=== PATIENT | male | born 1960 | race African-American/Black ===

== ENCOUNTER → 2016-10-08 07:32 | Outpatient (CLI) | payer MEDICAID | LOC: D.MRI 07:32 | DX: M50.10 Cervical disc disorder with radiculopathy, unspecified cervical region (principal); R20.0 Anesthesia of skin; R53.1 Weakness ==

== ENCOUNTER 2017-02-11 08:44 | Emergency (ER) | payer MEDICAID | END 2017-02-11 09:44 | disposition home or self-care (01) | LOC: D.ER 08:44 | DX: M25.512 Pain in left shoulder (principal); M54.2 Cervicalgia; R20.0 Anesthesia of skin; R50.9 Fever, unspecified; F17.200 Nicotine dependence, unspecified, uncomplicated ==